=== PATIENT | female | born 1985 | race African-American/Black ===

== ENCOUNTER 2023-09-01 12:28 | Inpatient (IN) | payer MEDICAID ==
[~2023-09-01] VITALS: Ht 167.6 cm; Wt 96.6 kg
[2023-09-01 08:00] VITALS: BP 97/52; PULSE 63; RESP 18; TEMP 97.9
[~2023-09-01 12:28] MED LIST: ASPI-1406 PO; ATOR40TA70 PO; CLOP-31 PO; DICL75TA5 MT; DILT90TA2 PO; DYZ PO; LOSA1TAB34 PO; METO75TA PO; WARF10TA44 MT
[2023-09-01 13:45] LABS: BASOPHILS % 0.8 % (0.0-2.0); EOSINOPHILS % 0.9 % (0.0-5.0); HEMATOCRIT. 28.5 % (36.0-48.0); HEMOGLOBIN. 9.2 g/dL (12.0-16.0); LYMPHOCYTES % 22.3 % (20.0-50.0); MEAN CORPUSCULAR HEMOGLOBIN 24.8 pg (28.0-32.0); MEAN CORPUSCULAR HGB CONC 32.5 g/dL (31.0-37.0); MEAN CORPUSCULAR VOLUME 76.6 fL (81.0-99.0); MONOCYTES % 4.2 % (2.0-8.0); NEUTROPHILS % 71.8 % (40.0-76.0); PLATELET 417 x1000/uL (130-400); RED BLOOD CELL COUNT 3.72 mill/uL (4.2-5.4); RED CELL DISTRIBUTION WIDTH 27.8 % (11.6-14.6); WHITE BLOOD COUNT 7.2 x1000/uL (4.5-11.0)
[2023-09-01 13:46] LABS: ADD RBC MORPHOLOGY YES; DIFFERENTIAL COMMENT 1
[2023-09-01 13:54] LABS: CHLORIDE 106 mEq/L (98-107); POTASSIUM 3.6 mEq/L (3.5-5.1); SODIUM 139 mEq/L (136-145)
[2023-09-01 13:55] LABS: CALCIUM 9.6 mg/dL (8.7-10.4); CARBON DIOXIDE 26 mEq/L (21-32)
[2023-09-01 14:00] LABS: CREATININE 0.7 mg/dL (0.6-1.0); GLUCOSE 91 mg/dL (70-105); UREA NITROGEN BLOOD 11 mg/dL (9-23)
[2023-09-01 14:05] LABS: TROPONIN I HIGH SENSITIVITY < 4 ng/L (3.0-34)
[2023-09-01 14:16] LABS: CLARITY URINE CLEAR (CLEAR); COLOR URINE YELLOW (YELLOW); GLUCOSE URINE NEGATIVE (NEGATIVE); KETONES URINE NEGATIVE (NEGATIVE); LEUKOCYTE ESTERASE URINE NEGATIVE (NEGATIVE); NITRITE URINE NEGATIVE (NEGATIVE); OCCULT BLOOD URINE 3+ (NEGATIVE); PH URINE 5.5 (4.5-8.0); PROTEIN URINE TRACE (NEGATIVE); SPECIFIC GRAVITY URINE 1.028 (1.005-1.030)
[2023-09-01 14:25] LABS: ANISOCYTOSIS 4+; PLATELET ESTIMATE SLIGHTLY INCREASED
[2023-09-01 14:26] LABS: MICROCYTOSIS 1+
[2023-09-01 14:38] LABS: MUCUS URINE 3+ /lpf (< = 2+); SQUAMOUS EPITHELIAL CELL URINE 1+ /lpf (RARE/1+)
[2023-09-01 14:39] LABS: BACTERIA URINE TRACE; RBC URINE 50-100 /hpf (0-2); WBC URINE 0-2 /hpf (0-2)
[2023-09-01] MEDS: SODIUM CHLORIDE 0.9% 1,000 ML IV ONE (16:21)
[2023-09-01 17:44] LABS: INR 1.5; PROTHROMBIN TIME 16.3 sec (9.6-11.0)
[2023-09-01 17:51] LABS: HCG SCREEN NEGATIVE
[2023-09-01 22:07] VITALS: BP 107/68; PULSE 107; RESP 18; TEMP 99.3
[2023-09-01] MEDS ORDERED: IOHEXOL-350 100 ML BOTTLE ONE (23:06)
[2023-09-01] MEDS: HYDROCODONE/ACETAMINOPHEN 5/325MG TABLET PO PRN (23:35)
[2023-09-02] VITALS (8 sets, daily range): BP systolic 90–120; BP diastolic 37–68; PULSE 69–107; RESP 17–20; TEMP 97.3–99.3
[2023-09-02 06:12] LABS: INR 1.6; PROTHROMBIN TIME 17.5 sec (9.6-11.0)
[2023-09-02 06:21] LABS: CHLORIDE 105 mEq/L (98-107); SODIUM 137 mEq/L (136-145)
[2023-09-02 06:22] LABS: BASOPHILS % 0.7 % (0.0-2.0); CARBON DIOXIDE 26 mEq/L (21-32); EOSINOPHILS % 2.4 % (0.0-5.0); HEMATOCRIT. 24.5 % (36.0-48.0); HEMOGLOBIN. 7.8 g/dL (12.0-16.0); LYMPHOCYTES % 34.1 % (20.0-50.0); MEAN CORPUSCULAR HEMOGLOBIN 24.5 pg (28.0-32.0); MEAN CORPUSCULAR VOLUME 76.6 fL (81.0-99.0); MEAN PLATELET VOLUME 8.3 fl (7.4-10.4); NEUTROPHILS % 54.8 % (40.0-76.0); PLATELET 341 x1000/uL (130-400); RED CELL DISTRIBUTION WIDTH 27.3 % (11.6-14.6); WHITE BLOOD COUNT 5.1 x1000/uL (4.5-11.0)
[2023-09-02 06:23] LABS: CALCIUM 9.5 mg/dL (8.7-10.4)
[2023-09-02 06:27] LABS: CREATININE 0.6 mg/dL (0.6-1.0); GLUCOSE 97 mg/dL (70-105); UREA NITROGEN BLOOD 8 mg/dL (9-23)
[2023-09-02 06:36] LABS: DIFFERENTIAL COMMENT 1
[2023-09-02 06:37] LABS: ADD RBC MORPHOLOGY NO
[2023-09-02] MEDS: METOPROLOL TARTRATE 50MG TABLET PO SCH (08:46)
[2023-09-02] MEDS: WARFARIN SODIUM 5MG TABLET PO SCH (17:41)
[2023-09-02] MEDS ORDERED: IRON SUCROSE COMPLEX 100 MG/5 ML ML IV SCH (18:15)
[2023-09-02] MEDS ORDERED: NALOXONE HCL 0.4MG/ML VIAL IV PRN (20:00)
[2023-09-02] MEDS: ATORVASTATIN CALCIUM 40MG TABLET PO SCH (21:44)
[2023-09-03 04:00] VITALS: BP 100/42; PULSE 72; RESP 22; TEMP 97.2
[2023-09-03 05:33] LABS: EOSINOPHILS % 3.9 % (0.0-5.0); HEMATOCRIT. 26.2 % (36.0-48.0); HEMOGLOBIN. 8.2 g/dL (12.0-16.0); LYMPHOCYTES % 48.6 % (20.0-50.0); MEAN CORPUSCULAR HEMOGLOBIN 24.3 pg (28.0-32.0); MEAN CORPUSCULAR HGB CONC 31.4 g/dL (31.0-37.0); MEAN CORPUSCULAR VOLUME 77.4 fL (81.0-99.0); MEAN PLATELET VOLUME 8.2 fl (7.4-10.4); MONOCYTES % 7.5 % (2.0-8.0); PLATELET 384 x1000/uL (130-400); RED BLOOD CELL COUNT 3.39 mill/uL (4.2-5.4); RED CELL DISTRIBUTION WIDTH 27.5 % (11.6-14.6); WHITE BLOOD COUNT 4.3 x1000/uL (4.5-11.0)
[2023-09-03 05:34] LABS: CARBON DIOXIDE 27 mEq/L (21-32); CHLORIDE 104 mEq/L (98-107); SODIUM 136 mEq/L (136-145)
[2023-09-03 05:35] LABS: CALCIUM 8.8 mg/dL (8.7-10.4)
[2023-09-03 05:39] LABS: CREATININE 0.7 mg/dL (0.6-1.0); IRON 19 ug/dL (50-170)
[2023-09-03 05:40] LABS: GLUCOSE 93 mg/dL (70-105); UREA NITROGEN BLOOD 15 mg/dL (9-23)
[2023-09-03 05:42] LABS: TOTAL IRON BINDING CAPACITY 379 ug/dl (250-425)
[2023-09-03 05:50] LABS: FOLIC ACID (FOLATE) SERUM 15.29 ng/mL (>5.38); VITAMIN B12 SERUM 186 pg/mL (211-911)
[2023-09-03 05:57] LABS: FERRITIN 3 ng/mL (10-291)
[2023-09-03 06:25] LABS: INR 1.6; PROTHROMBIN TIME 17.2 sec (9.6-11.0)
[2023-09-03 06:37] LABS: DIFFERENTIAL COMMENT 1
[2023-09-03 08:00] VITALS: BP 98/61; PULSE 73; RESP 18; TEMP 97.9
[2023-09-03] MEDS: DOCUSATE SODIUM 250MG CAPSULE PO SCH (08:38)
[2023-09-03] MEDS: FERROUS SULFATE 325MG TABLET PO SCH (08:39)
[2023-09-03 12:00] VITALS: BP 114/42; PULSE 74; RESP 18; TEMP 97.7
[2023-09-03 16:00] VITALS: BP 115/66; PULSE 84; RESP 18; TEMP 98.1
[2023-09-03] MEDS: WARFARIN SODIUM 2.5MG TABLET PO SCH (17:32)
[2023-09-03] MEDS: CYANOCOBALAMIN 1000MCG/ML VIAL IM SCH (17:53)
[2023-09-03 20:00] VITALS: BP 92/46; PULSE 81; RESP 17; TEMP 97.9
[2023-09-04] VITALS: BP 92/48; PULSE 66; RESP 19; TEMP 97.7
[2023-09-04 04:00] VITALS: BP_SYST 110; BP_SYST 92; BP_DIAS 48; BP_DIAS 56; PULSE 65; PULSE 66; RESP 17; RESP 19; TEMP 97.6; TEMP 97.7
[2023-09-04 06:12] LABS: INR 1.5; PROTHROMBIN TIME 16.1 sec (9.6-11.0)
[2023-09-04 08:00] VITALS: BP 115/66; PULSE 69; RESP 18; TEMP 98.1
[2023-09-04 12:00] VITALS: BP 119/67; PULSE 81; RESP 18; TEMP 98.2
[2023-09-04] MEDS ORDERED: FERR-63 PO (12:59)
[2023-09-04] MEDS ORDERED: DOCU250C14 PO (12:59)
[2023-09-04] MEDS ORDERED: WARF2.5T83 MT (13:00)
[2023-09-04 16:00] VITALS: BP 134/68; PULSE 86; RESP 18; TEMP 98.2
[2023-09-04 16:16] VITALS: PULSE 72; TEMP 97.5; O2SAT 98
== END 2023-09-04 17:06 | disposition home or self-care (01) | DRG 663 ==
LOC: ER 12:35 → EDBEDREQTM 19:02 → EDBEDREQ 19:02 → 8WST 22:26
PROVIDERS: ADMIT Internal Medicine; ATTEND Internal Medicine
DX: D50.9 Iron deficiency anemia, unspecified (principal); D68.61 Antiphospholipid syndrome; I10 Essential (primary) hypertension; E66.9 Obesity, unspecified; Z68.34 Body mass index [BMI] 34.0-34.9, adult; F41.9 Anxiety disorder, unspecified; N92.0 Excessive and frequent menstruation with regular cycle; E78.5 Hyperlipidemia, unspecified; E53.8 Deficiency of other specified B group vitamins; Z86.711 Personal history of pulmonary embolism; Z79.01 Long term (current) use of anticoagulants
CPT/HCPCS: 36415; 71045; 71275; 80048; 81003; 82607; 82728; 82746; 83540; 83550; 84484; 84703; 85025; 93005; 99285; J3420; J7030; Q9967

== ENCOUNTER 2023-09-07 09:29 | Emergency (ER) | payer MEDICAID ==
[~2023-09-07] VITALS: Ht 162.6 cm; Wt 78.0 kg
[~2023-09-07 09:29] MED LIST changes: +DOCU250C14 PO; +FERR-63 PO; +WARF2.5T83 MT
[2023-09-07 09:39] VITALS: TEMP 98; O2SAT 100
[2023-09-07 10:13] LABS: CLARITY URINE CLEAR (CLEAR); COLOR URINE YELLOW (YELLOW); GLUCOSE URINE NEGATIVE (NEGATIVE); KETONES URINE NEGATIVE (NEGATIVE); LEUKOCYTE ESTERASE URINE NEGATIVE (NEGATIVE); NITRITE URINE NEGATIVE (NEGATIVE); OCCULT BLOOD URINE NEGATIVE (NEGATIVE); PROTEIN URINE NEGATIVE (NEGATIVE); SPECIFIC GRAVITY URINE 1.004 (1.005-1.030); UROBILINOGEN URINE 0.2 E.U./dL (0.2-1.0)
[2023-09-07 10:15] LABS: BASOPHILS % 0.8 % (0.0-2.0); EOSINOPHILS % 1.2 % (0.0-5.0); HEMATOCRIT. 30.9 % (36.0-48.0); HEMOGLOBIN. 9.8 g/dL (12.0-16.0); LYMPHOCYTES % 31.8 % (20.0-50.0); MEAN CORPUSCULAR HEMOGLOBIN 24.8 pg (28.0-32.0); MEAN CORPUSCULAR HGB CONC 31.7 g/dL (31.0-37.0); MEAN CORPUSCULAR VOLUME 78.3 fL (81.0-99.0); MEAN PLATELET VOLUME 7.5 fl (7.4-10.4); MONOCYTES % 4.7 % (2.0-8.0); NEUTROPHILS % 61.5 % (40.0-76.0); PLATELET 483 x1000/uL (130-400); RED BLOOD CELL COUNT 3.95 mill/uL (4.2-5.4); RED CELL DISTRIBUTION WIDTH 27.5 % (11.6-14.6); WHITE BLOOD COUNT 4.6 x1000/uL (4.5-11.0)
[2023-09-07 10:17] LABS: ADD RBC MORPHOLOGY YES; DIFFERENTIAL COMMENT 1
[2023-09-07 10:22] LABS: HCG SCREEN NEGATIVE
[2023-09-07 10:27] LABS: CHLORIDE 103 mEq/L (98-107); POTASSIUM 3.5 mEq/L (3.5-5.1); SODIUM 136 mEq/L (136-145)
[2023-09-07 10:28] LABS: CALCIUM 9.6 mg/dL (8.7-10.4); CARBON DIOXIDE 25 mEq/L (21-32)
[2023-09-07 10:33] LABS: CREATININE 0.7 mg/dL (0.6-1.0); GLUCOSE 93 mg/dL (70-105); UREA NITROGEN BLOOD 8 mg/dL (9-23)
[2023-09-07 10:35] LABS: ALANINE AMINOTRANSFERASE 14 IU/L (10-49); ALBUMIN 5.5 g/dL (3.2-4.8); ASPARTATE AMINOTRANSFERASE 19 IU/L (<34); BILIRUBIN DIRECT 0.2 mg/dL (<=3.0)
[2023-09-07 10:36] LABS: BILIRUBIN TOTAL 0.6 mg/dL (0.1-1.0); PROTEIN TOTAL 8.3 g/dL (6.0-8.3)
[2023-09-07 11:01] LABS: D-DIMER 0.6 mg/L FEU (<0.50); INR 1.5; PROTHROMBIN TIME 16.6 sec (9.6-11.0)
[2023-09-07 11:11] LABS: ANISOCYTOSIS 4+; HYPOCHROMASIA 1+; MICROCYTOSIS 1+
[2023-09-07 11:12] LABS: PLATELET ESTIMATE SLIGHTLY INCREASED
[2023-09-07] MEDS ORDERED: IOHEXOL-350 100 ML BOTTLE ONE (13:12)
[2023-09-07] MEDS ORDERED: LIDO700A15 TP (13:22)
[2023-09-07 14:14] VITALS: BP 132/73; PULSE 71; RESP 16
== END 2023-09-07 14:14 | disposition home or self-care (01) ==
LOC: ER 09:29
DX: M54.50 Low back pain, unspecified (principal); F12.10 Cannabis abuse, uncomplicated
CPT/HCPCS: 80076; 80048; 81003; 84703; 85025; 85379; 85610; 86850; 86900; 86901; 36415; 74174; 71275; 99285; Q9967; Z7610